=== PATIENT | female | born 2000 | race Caucasian/White ===

== ENCOUNTER → 2020-08-04 11:31 | Outpatient (CLI) | payer BC, SELFPAY ==
[2020-07-27 14:08] VITALS: BMI 19.3
--- NOTE | 2020-08-04 11:34 | US_ITS ---
STUDY: ULTRASOUND OF THE FEMALE PELVIS - COMPLETE REASON FOR EXAM: Female, 20 years old. IUD CHECK, PERINEAL PAIN LMP: 07/23/2020. TECHNIQUE: Transabdominal and Transvaginal TECHNICAL QUALITY: Adequate. COMPARISON: None. FINDINGS: The uterus is anteverted and is in a midline position. The uterus measures 8 cm x 5.1 cm x 3.6 cm. Normal uterine cervix. The endometrium measures 3.4 mm in thickness, and is hyperechoic. There is no demonstrated endometrial mass. There is no demonstrated myometrial mass. I.U.D. - The patient does have an I.U.D. the IUD is in the fundal region of the uterus. The right ovary is visualized. The right ovary measures 3.9 cm x 2.6 cm x 2.1 cm. There is no right ovarian cyst or ovarian mass. There is no visualized right adnexal mass or complex lesion. There is normal arterial and normal venous vascularity. The left ovary is visualized. The left ovary measures 3.8 cm x 1.8 cm x 2.2 cm. There is no left ovarian cyst or ovarian mass. There is no visualized left adnexal mass or complex lesion. There is normal arterial and normal venous vascularity. There is no fluid in the cul-de-sac. The pre void volume of the bladder was 417 ml. Polycystic ovary disease: No. US/Pelvic (Non ) IMPRESSION: The IUD is in good position. Electronically Signed: Main Salazar MD at 13:37 EDT , Service support ,
--- NOTE | 2020-08-04 11:34 | US_ITS ---
STUDY: ULTRASOUND OF THE FEMALE PELVIS - COMPLETE REASON FOR EXAM: Female, 20 years old. IUD CHECK, PERINEAL PAIN LMP: 07/23/2020. TECHNIQUE: Transabdominal and Transvaginal TECHNICAL QUALITY: Adequate. COMPARISON: None. FINDINGS: The uterus is anteverted and is in a midline position. The uterus measures 8 cm x 5.1 cm x 3.6 cm. Normal uterine cervix. The endometrium measures 3.4 mm in thickness, and is hyperechoic. There is no demonstrated endometrial mass. There is no demonstrated myometrial mass. I.U.D. - The patient does have an I.U.D. the IUD is in the fundal region of the uterus. The right ovary is visualized. The right ovary measures 3.9 cm x 2.6 cm x 2.1 cm. There is no right ovarian cyst or ovarian mass. There is no visualized right adnexal mass or complex lesion. There is normal arterial and normal venous vascularity. The left ovary is visualized. The left ovary measures 3.8 cm x 1.8 cm x 2.2 cm. There is no left ovarian cyst or ovarian mass. There is no visualized left adnexal mass or complex lesion. There is normal arterial and normal venous vascularity. There is no fluid in the cul-de-sac. The pre void volume of the bladder was 417 ml. Polycystic ovary disease: No. US/Transvaginal Non- IMPRESSION: The IUD is in good position. Electronically Signed: Main Salazar MD at 13:37 EDT , Service support ,
== END ==
PROVIDERS: Referring Provider Nurse Practitioner Women's Health; Visit Provider Nurse Practitioner Women's Health
DX: R10.2 Pelvic and perineal pain (principal); Z30.431 Encounter for routine checking of intrauterine contraceptive device
CPT/HCPCS: 76830; 76856